=== PATIENT | male | born 1955 | race Caucasian/White ===

== ENCOUNTER 2022-09-21 01:01 | Outpatient (CLI) | payer MEDICARE, SELFPAY ==
[2022-09-21 13:01] LABS: ALT 45 U/L (16-63); AST 27 U/L (15-37); Albumin 3.8 g/dL (3.4-5.0); Alkaline Phosphatase 61 U/L (46-116); Anion Gap 8.8 mmol/L (3-11); BUN 19 mg/dL (7-18); Bilirubin, Total 0.3 mg/dL (0.2-1.0); CO2 27.2 mmol/L (21.0-32.0); Calcium 8.9 mg/dL (8.5-10.1); Calculated LDL 92 mg/dL (<100); Chloride 105 mmol/L (98-107); Cholesterol 168 mg/dL (<200); Estimated GFR 83.52 (mL/min/1.73m2); Glucose 123 mg/dL (74-106); HDL Cholesterol 50 mg/dL (40-60); Potassium 4.5 mmol/L (3.5-5.1); Sodium 141 mmol/L (136-145); Total Protein 7.1 g/dL (6.4-8.2); Triglyceride 134 mg/dL (<150)
== END 2022-09-21 01:02 | disposition home or self-care (01) ==
LOC: LOS 01:02
PROVIDERS: PCP Nurse Practitioner Family; Visit Provider Nurse Practitioner Family
DX: Z13.1 Encounter for screening for diabetes mellitus (principal); Z13.220 Encounter for screening for lipoid disorders
CPT/HCPCS: 36415; 80053; 80061

== ENCOUNTER → 2022-11-08 10:09 | Outpatient (BNVA) | payer MEDICARE, SELFPAY | PROVIDERS: PCP Nurse Practitioner Family; Referring Provider Nurse Practitioner Family; Visit Provider Physical Therapy Assistant | DX: Z12.11 Encounter for screening for malignant neoplasm of colon (principal); Z80.0 Family history of malignant neoplasm of digestive organs ==

== ENCOUNTER 2022-11-16 08:13 | Day surgery (SDC) | payer MEDICARE, SELFPAY ==
--- NOTE | 2022-11-15 20:37 | W.COLOREPORT ---
Date of service: 11/16/22 Time of Service: 09:55 Colonoscopy Report Date of procedure: 11/16/22 Pre-op diagnosis general: +Cologuard Post-op diagnosis procedure note: other (diverticula/polyps x3 ) Surgeon: Malu Banda Anesthesia Type: General:No Airway Estimated blood loss (mL): 1 Pathology: other Complications: None Disposition: same day Prep: Miralax/Dulcolax Retraction Time: 20 Procedure Description: After informed consent was obtained the patient was taken to the procedure room and placed in a left decubitous position. Monitors were applied and a time out was done. The patients name, date of , procedure, allergies to medications and metal in their body was reviewed. The patient was then sedated. Once sedated and comfortable a rectal exam was done. External exam was normal. Internal exam revealed a normal sphincter tone and no palpable masses. The prostate nl. The scope was then introduced and retrofelexed. No internal hemorrhoids were identified. The scope was then advanced to the cecum w/out difficulty. The TI and appendiceal orifice were identified. The prep was BBPS 2 in all segments for total of 6.. The scope was then slowly retracted over 20 minutes back into the rectum. He had x3 polyps removed, all are falt 5mm polyps. x2 removed in the cecum, and x1 and at 70 cm. He has few small mouth diverticula confined to the sigmoid colon with no signs of active bleeding or infection. The colon is otherwise pink and healthy with a normal vascular pattern. the scope was removed and the patient was woken up and taken back to Same day surgery in stable condition. The patient tolerated the procedure well and there were no immediate complications. Follow up: The patient should follow up in 5-7 years unless they develop changes in bowel habits or other new gastrointestinal complaints.
--- NOTE | 2022-11-15 20:38 | PDOC.DSDIS_ITS ---
Date of service: 11/16/22 Time of Service: 09:59 Discharge Plan Disposition Patient Disposition: Home Condition: Good Discharge Details Reason For Visit: colon scope Attending Provider: Malu Banda Primary Care Provider: Kennedy Aguilar Home Meds and New Rx's Prescriptions: Discontinued bisacodyl [Dulcolax (bisacodyl)] 5 mg tablet,delayed release (DR/EC) 5 mg PO ONCE Qty: 4 0RF Rx Instructions: Take per colonoscopy instructions provided by ordering providers office polyethylene glycol 3350 17 gram/dose powder 17 g PO ONCE Qty: 238 0RF Rx Instructions: Take per colonoscopy instructions provided by ordering providers office No Action No Known Home Meds Discharge Instructions Additional Instructions: DSU Colonoscopy Post- Op Instructions Instructions for Everyone who is given Anesthesia: For your safety, please do the following for the next twenty-four (24) hours: *Do Not operate a motor vehicle (car, truck, motorcycle, etc.) *Do Not drink alcoholic beverages or use any recreational drugs for the first 24 hours or while taking pain medications. The medications in your body may have a reaction that can be dangerous. *Do Not make any important decisions or sign any important papers. Findings: x3 polyps diverticula Follow up: -My office will send a letter in 2 to 3 weeks time with the details of the polyps and when we want you to repeat the colonoscopy probably 5 to 7 years time. 1. No lifting over 20 pounds or strenuous activity for the first 24 hours after your procedure. After 24 hours there are no restrictions on your activity but you may feel fatigued for a few days. 2. After you arrive home you may have a light meal and return to your normal diet as you can tolerate it without feeling sick to your stomach. 3. You may have a bloated, gaseous feeling in your belly (abdomen) after a colonoscopy. Passing gas and belching will help. Walking or lying down on your left side with your knees flexed may relieve the discomfort. Call the office at [phone] (Office) or [phone] (Hospital) right away if you notice any of the following: a.Vomiting of blood or ?coffee ground stools?. b.Rectal bleeding 1Tbsp, blood clots or continuous bleeding. c.Severe belly (abdominal) pain. d.A hard distended belly (abdomen) and an inability to pass gas. 4. Please don?t expect to have a normal BM (bowel movement) for 2-3 days after your procedure. 5. If there are questions regarding the findings of your procedure, please contact your doctor 6. If you are unable to contact your doctor with a problem, contact the hospital at [phone]. 7. Continue all your regular medications unless directed otherwise. I understand the above instructions and have no questions. Signature of Patient or Adult Escort Name of Responsible Adult Escort Signature of Nurse Date/Time Activity:: see above Diet:: see above Discharge Orders Discharge Orders: Discharge Order (Routine); Ordered 11/16/22 Ordered By: Malu Banda DS: Diagnosis Discharge Diagnosis (1) Smoker: (2) Prediabetes: Status: Acute (3) Hyperlipidemia: Status: Acute (4) Positive colorectal cancer screening using Cologuard test: Status: Acute Asessment and Plan: The patient is seen and examined after their colonoscopy.? The patient has been able to pass gas.? They are not having abdominal pain.? They have been able to tolerate liquids and a snack.? They do not have any nausea or vomiting.? They are not having any chest pain or shortness of breath.??? They are not having any rectal bleeding. Their vital signs have been stable-see nursing notes. We discussed findings during their colonoscopy, and any biopsies that were done/polyps that were removed. The patient will be sent a letter with any biopsy results, and when to repeat the colonoscopy.-see discharge instructions. Patient was given explicit instructions to follow-up regarding colonoscopy-refer to discharge instructions.? We reviewed resumption of medications. Patient verbalized understanding and discharged in stable and satisfactory condition- See nursing notes. (5) Diverticula of colon: Status: Acute
[2022-11-16 08:23] VITALS: BP 139/76; PULSE 78; RESP 18; TEMP 36.5; O2SAT 100
[2022-11-16] MEDS: Lactated Ringers 1,000 ML 80 ML IV (08:43)
--- NOTE | 2022-11-16 08:52 | W.ANESPRE ---
General Info Date of Service Date Performed: 11/16/22 Height: 5 ft 7 in Weight: 79.8 kg Body Mass Index (BMI): 27.5 Surgical Procedure: Operation Date: 11/16/22 09:05 Proposed Procedure Side Surgeon yuval Banda, DO Meds Allergies and Home Medications Allergies Allergy/AdvReac Type Severity Reaction Status Date / Time No Known Allergies Allergy Verified 11/16/22 08:42 Home Medication Medication Instructions Recorded Unknown [No Known Home Meds] 11/16/22 Current Visit Medications: Current Medications Generic Name Dose Route Start Last Admin Trade Name Freq PRN Reason Stop Dose Admin Hyoscyamine Sulfate 0.125 mg 11/16/22 08:35 Hyoscyamine 0.125 Mg Sl/Oral/Chew SL 12/16/22 08:34 DIRECTED PRN Ringer's Solution 1,000 mls @ 80 mls/hr 11/16/22 06:00 11/16/22 08:43 IV 11/16/22 23:59 80 mls/hr INFUSION PEREZ Administration IV Miscellaneous Supplies 1 each 11/16/22 06:00 Iv Access IV 11/16/22 23:59 DIRECTED PEREZ Ondansetron HCl 4 mg 11/16/22 08:35 Ondansetron 4 Mg/2 Ml Vial IVP 12/16/22 08:34 Q4H PRN PRN Nausea / Vomiting Sodium Chloride 0 ml 11/16/22 06:00 Normal Saline Flush 10 Ml Syr IV 11/16/22 23:59 PRN PRN Sodium Chloride 0 ml 11/16/22 06:00 Normal Saline 10 Ml Vial IJ 11/16/22 23:59 DIRECTED PRN Sterile Water 0 ml 11/16/22 06:00 Water,Injection,Sterile 10 Ml Vial IJ 11/16/22 23:59 DIRECTED PRN PFSH Active Problems Active Problems: Problem Status Onset Code Positive colorectal cancer screening using Cologuard test R19.5 Colon cancer screening Z12.11 Hyperlipidemia E78.5 Prediabetes R73.03 Medical History Medical History Smoker Tobacco Smoking/Tobacco Use Status: Current every day Tobacco Type: cigarettes Passive smoking exposure: Yes Second hand exposure: No Alcohol Alcohol Intake: never Substance Use Substance use: Daily Substance use type: marijuana Vital Signs and Lab Results Vital Signs Most Recent Vital Signs in EMR: Most Recent Vital Signs Temp Pulse Resp BP Pulse Ox 36.5 C 78 18 139/76 100 11/16/22 08:23 11/16/22 08:23 11/16/22 08:23 11/16/22 08:23 11/16/22 08:23 Lab Results Blood Type / Crossmatch: No Data to Display Complete Blood Count: No Data to Display Complete Metabolic Panel: No Data to Display Liver Function Panel: No Data to Display Coagulation Panel: No Data to Display Cardiac Panel: No Data to Display Arterial Blood Gas: No Data to Display Venous Blood Gas: No Data to Display Pancreas Panel: No Data to Display Thyroid Panel: No Data to Display Infectious Disease: No Data to Display Blood Cultures: No Data to Display Toxicology Panel: No Data to Display Anesthesia Assessment and Plan Anesthesia History Personal History: Unknown Anesthesia History Family History: No Family History of Anesthesia Complications Exercise Tolerance Exercise Tolerance: Metabolic Equivalents>4 Pertinent Negatives Pertinent Negatives: No Symptoms of GERD Cardiac & Pulmonary Exam Cardiac Exam: Normal S1/S2 Heart Sounds Pulmonary Exam: Clear Bilateral Breath Sounds Implantable Cardiac Device Does patient have a Pacemaker or an ICD?: No Airway Exam Known Difficult Airway: No Mallampati Class: 2 Mouth Opening: Normal (> 3cm) Thyromental Distance: Greater than 3 cm Neck Range of Motion: Full ROM Neck Circumference: Normal Teeth Condition: Normal Dentition ASA Classification ASA Score: ASA 2 Emergency Case?: No NPO Status NPO Status: NPO Clears >2 hours, Solids >8 hours Anesthesia Plan Resuscitation Status: Full Code Anesthesia Technique: General Anesthesia Airway Planned: Natural Airway Monitors Used: Standard Monitors
[2022-11-16 08:53] VITALS: BMI 27.5
--- NOTE | 2022-11-16 09:25 | BOWEL_PTH ---
PATIENT: Bryan Thomas JR LOC: [facility] U#:[id number] AGE/SX: 67/M ROOM: RE11/16/[address]: Malu Banda : 1955 BED: DIS: 11/16/2022 SPEC #: [id number] RECD: 11/16/22 12:22 STATUS: DELORIS REQ #: [id number] SATYA: 11/16/22 09:[address]: Malu Banda DEPT: Surgical Specimen RECD BY: Kayla George ENTERED: 11/16/22 12:23 SP TYPE: Bowel OTHR DR: Kennedy Vazquez, NHUNG Tissues: 1 - BIOPSY BOWEL 2 - BIOPSY BOWEL Procedures: GROSS AND MICRO LEVEL 4 Comments: [id number]
[2022-11-16 09:48] VITALS: BP 96/61; PULSE 71; RESP 18; TEMP 36.3; O2SAT 97
--- NOTE | 2022-11-16 09:57 | W.ANESPOSTOP ---
Postoperative Evaluation Date, Time and Location Date Performed: 11/16/22 Time Performed: 09:57 Patient Location: Day Surgery Unit Vital Signs Most Recent Imported Vital Signs: Most Recent Vital Signs Temp Pulse Resp BP Pulse Ox 36.3 C L 71 18 96/61 L 97 11/16/22 09:48 11/16/22 09:48 11/16/22 09:48 11/16/22 09:48 11/16/22 09:48 Pain Score Most Recent Pain Score: Most Recent Pain Score Pain Level 0 11/16/22 09:48 Assessment Mental Status: Arousable with meaningful communication Airway and Respiratory Function: Patent airway with normal (patient baseline) respiratory exam Cardiovascular Function: Hemodynamically Stable Hydration Status: Adequately Hydrated Nausea & Vomiting: No Nausea or Vomiting Pain: Pt. Denies Any Pain Peripheral Nerve Block: Patient did not receive a nerve block
[2022-11-16 10:17] VITALS: BP 114/69; PULSE 63; RESP 16; TEMP 36.2; O2SAT 97
== END 2022-11-16 10:50 | disposition home or self-care (01) ==
PROVIDERS: PCP Nurse Practitioner Family; Visit Provider Surgery
PROC: 0DJD8ZZ Inspection of Lower Intestinal Tract, Via Natural or Artificial Opening Endoscopic (ICD-10-PCS; CPT 45378; principal; 2022-11-16 09:00)
DX: R19.5 Other fecal abnormalities (principal); R73.03 Prediabetes; E78.5 Hyperlipidemia, unspecified; F12.90 Cannabis use, unspecified, uncomplicated; K57.30 Diverticulosis of large intestine without perforation or abscess without bleeding; D12.0 Benign neoplasm of cecum
CPT/HCPCS: 45380; 88305; J2001; J2704

== ENCOUNTER 2024-10-12 02:41 | Outpatient (CLI) | payer MEDICARE, SELFPAY ==
--- NOTE | 2024-10-12 06:30 | DI.US_ITS ---
Exam(s) US AAA SCREENING EXAM: US AAA SCREENING CLINICAL HISTORY: screening FOR AAA,[employer], F17.210 COMPARISON: No exams were available for comparison FINDINGS: Abdominal Aorta: Proximal: 2.2 cm Mid: 2.1 cm Distal: 1.9 cm Iliacs: Right: 1 cm Left: 1.2 cm IMPRESSION: No evidence of abdominal aortic aneurysm. DATA REPOSITORY:
--- NOTE | 2024-10-12 06:30 | DI.CTLCSR_ITS ---
Exam(s) CT CHEST LUNG CANCER SCREEN EXAM: CT CHEST LUNG CANCER SCREEN CLINICAL HISTORY: Screening for lung cancer,[employer]IG[employer]TE [employer], F17.210 TECHNIQUE: Imaging Protocol: Axial computed tomography images with coronal and sagittal reformatted images were created and reviewed. Lung Computer Aided Detection (CAD) was utilized. COMPARISON: No exams were available for comparison FINDINGS: Tracheobronchial tree: Patent where visualized. No bronchiectasis. Pulmonary parenchyma: No consolidation or dominant measurable mass. No architectural distortion. Ther e is solitary 3 mm triangular nodule associated with the inferior aspect of the left major fissure. Lung Nodules: No suspicious pulmonary nodules. Mediastinum and Yesenia: No dominant adenopathy or fluid collection. The esophagus is unremarkable. Thyroid gland: Unremarkable. Lymph nodes: Unremarkable. Pleura: No effusion or pneumothorax. Heart: The heart is not dilated. Single-vessel coronary artery calcification is present. No pericard ial effusion. Aorta: Thoracic aorta non-dilated.Atherosclerotic calcification is present. Upper abdomen: Unremarkable. Soft Tissues: Unremarkable. Bones: Within normal limits. IMPRESSION: No suspicious nodules. 3 mm left perifissural nodule is visualized. Lung RADS Cat 2 - Benign Appearance / Behavior: Nodules with a very low likelihood of becoming a clin ically active cancer due to size or lack of growth Lung-RADS 1.0 CATEGORIES: Category 0 - Prior chest CT exam(s) being located for comparison. Category 1 - Annual screening in 12 months. No nodules or definitely benign nodules. Category 2 - Annual screening in 12 months. Benign appearance. Nodules with low likelihood of becomin g active cancer. Category 3 - 6-month follow-up. Probably benign. Short-term follow-up suggested. Nodules with low lik elihood of becoming active cancer. Category 4A - 3-month follow-up and CT/PET if >8 mm in size. Suspicious finding. Findings which requi re additional testing. Category 4B - Findings which require additional testing and tissue sampling. Suspicious finding. Category 4X - Category 3 or 4 nodules with additional features or imaging findings that increases the suspicion of malignancy. Modifier S- Potentially clinically significant finding. (Non lung cancer) RADIATION DOSE DELIVERED: 41.5mGy.cm Total DLP 41.5mGy.cmTotal DLP DATA REPOSITORY: All CT scans at this facility are submitted to the National Radiology Data Registry (NRDR) Dose Index Registry (DIR) with the [employer] ([employer]). RADIATION OPTIMIZATION: All CT scans at this facility use at least one of these dose optimization te chniques: automated exposure control; mA and/or kV adjustment per patient size (includes targeted exa ms where dose is matched to clinical indication); or iterative reconstruction.
== END 2024-10-12 03:01 ==
LOC: DI 02:41
PROVIDERS: PCP Nurse Practitioner Family; Visit Provider Nurse Practitioner Family
DX: F17.210 Nicotine dependence, cigarettes, uncomplicated (principal); Z12.2 Encounter for screening for malignant neoplasm of respiratory organs; Z13.6 Encounter for screening for cardiovascular disorders
CPT/HCPCS: 71271; 76706